=== PATIENT | male | born 1955 | race Asian ===

== ENCOUNTER 2023-06-15 07:38 | Day surgery (SDC) | payer OTHER ==
[~2023-06-15] VITALS: Ht 170.2 cm; Wt 70.3 kg
[2023-06-15] MEDS ORDERED: diphenhydrAMINE 50 MG/ML VIAL ONE (07:59)
[2023-06-15] MEDS ORDERED: MIDAZOLAM 5 MG/5 ML VIAL ONE (08:00)
[2023-06-15] MEDS ORDERED: fentaNYL citrate 0.05 MG/ML VIAL ONE (08:00)
[2023-06-15] MEDS: MIDAZOLAM 2 MG/2 ML VIAL IVP ONE (08:10)
[2023-06-15] MEDS: fentaNYL citrate 0.05 MG/ML VIAL IVP ONE (08:11)
[2023-06-15] MEDS: LIDOCAINE 2% 100 MG/5 ML UJET TP ONE (08:12)
[2023-06-15] MEDS ORDERED: SIMETHICONE 40 MG/0.6 ML ONE (08:16)
== END 2023-06-15 09:50 | disposition home or self-care (01) ==
LOC: MDS 07:38 → MMU 07:39 → MDS 09:50
PROVIDERS: ATTEND Internal Medicine Gastroenterology
DX: K62.5 Hemorrhage of anus and rectum (principal); D12.2 Benign neoplasm of ascending colon; K57.30 Diverticulosis of large intestine without perforation or abscess without bleeding
CPT/HCPCS: 45385; 88305; J2250; J3010; J1200